=== PATIENT | male | born 1945 | race Native Hawaiian/Other Pacific Islander ===

== ENCOUNTER 2017-03-18 09:01 | Outpatient (CLI) | payer OTHER ==
[~2017-03-18 09:01] MED LIST: ALLERCLEAR10 MG PO; ASA LOW DOSE81 MG PO; BENADRYL25 M1 PO; CENTRUM SILVER ULTR1 PO; ESTER-C500 M1 OR; EYE DROP1 OP; FISH OIL1200 M1 OR; HYDR25TA60 PO; NASONEX50 MCG/AC; OMEGA OR; SINGULAIR10 MG PO; TESTOST CYP100 MG/ML IM; VIT E COMPLX400 UNIT PO; VITAMIN D H1000 UNIT PO; VYTORIN1 TA2 PO
[2017-03-18 09:38] LABS: PLATELET COUNT 171 K/uL (142-355)
[2017-03-18 10:07] LABS: POTASSIUM 3.9 mmol/L (3.6-5.2); SODIUM 139 mmol/L (136-145)
== END 2017-03-18 19:25 | disposition home or self-care (01) ==
LOC: LABW 09:01
PROVIDERS: Internal Medicine
DX: Z00.00 Encounter for general adult medical examination without abnormal findings (principal); I10 Essential (primary) hypertension; Z12.5 Encounter for screening for malignant neoplasm of prostate; Z79.899 Other long term (current) drug therapy; E78.4 Other hyperlipidemia; Z51.81 Encounter for therapeutic drug level monitoring
CPT/HCPCS: 36415; 80053; 80061; 81000; 84153; 84443; 85027

== ENCOUNTER 2017-04-23 08:54 | Outpatient (CLI) | payer OTHER ==
[2017-04-23 09:49] LABS: POTASSIUM 4.1 mmol/L (3.6-5.2); SODIUM 140 mmol/L (136-145)
== END 2017-04-23 19:24 | disposition home or self-care (01) ==
LOC: LABW 08:54
PROVIDERS: Internal Medicine
DX: R79.89 Other specified abnormal findings of blood chemistry (principal)
CPT/HCPCS: 36415; 80048; 80076

== ENCOUNTER 2017-11-27 09:46 | Outpatient (CLI) | payer OTHER ==
[2017-11-27 10:15] LABS: PLATELET COUNT 205 K/uL (142-355)
[2017-11-27 10:28] LABS: POTASSIUM 3.9 mmol/L (3.6-5.2)
== END 2017-11-27 19:21 | disposition home or self-care (01) ==
LOC: LABW 09:46
PROVIDERS: Internal Medicine
DX: I10 Essential (primary) hypertension (principal)
CPT/HCPCS: 36415; 80053; 80061; 85027

== ENCOUNTER 2018-03-25 15:41 | Outpatient (CLI) | payer OTHER ==
[2018-03-25 15:59] LABS: PLATELET COUNT 179 K/uL (142-355)
[2018-03-25 17:00] LABS: POTASSIUM 4.4 mmol/L (3.6-5.2)
== END 2018-03-25 22:51 | disposition home or self-care (01) ==
LOC: LABW 15:41
PROVIDERS: Internal Medicine
DX: Z00.00 Encounter for general adult medical examination without abnormal findings (principal); I10 Essential (primary) hypertension; Z12.5 Encounter for screening for malignant neoplasm of prostate; Z79.899 Other long term (current) drug therapy; Z51.81 Encounter for therapeutic drug level monitoring; E78.4 Other hyperlipidemia
CPT/HCPCS: 80053; 80061; 81000; 84153; 84443; 85027